=== PATIENT | male | born 2000 | race Caucasian/White ===

== ENCOUNTER 2025-01-14 15:04 | Outpatient (CLI) | payer BC, SELFPAY | END 2025-01-14 15:05 | disposition home or self-care (01) | LOC: NFLDREF 01-20 08:18 | PROVIDERS: PCP Family Medicine; Visit Provider Family Medicine | DX: Z00.00 Encounter for general adult medical examination without abnormal findings (principal); Z76.89 Persons encountering health services in other specified circumstances; Z13.1 Encounter for screening for diabetes mellitus; Z13.220 Encounter for screening for lipoid disorders; Z85.71 Personal history of Hodgkin lymphoma; I73.00 Raynaud's syndrome without gangrene | CPT/HCPCS: 80053; 80061 ==

== ENCOUNTER 2025-03-12 14:57 | Outpatient (CLI) | payer BC, SELFPAY | END 2025-03-12 14:58 | disposition home or self-care (01) | PROVIDERS: PCP Family Medicine; Visit Provider Family Medicine | DX: R19.5 Other fecal abnormalities (principal); Z13.0 Encounter for screening for diseases of the blood and blood-forming organs and certain disorders involving the immune mechanism; Z13.6 Encounter for screening for cardiovascular disorders | CPT/HCPCS: 80061; 82607; 82728; 83540; 83550 ==